=== PATIENT | male | born 1965 | race Caucasian/White ===

== ENCOUNTER 2023-09-29 10:28 | Day surgery (SDC) | payer OTHER ==
[2023-09-25 11:47] LABS: Potassium 4.7 mEq/L (3.5-5.1)
--- NOTE | 2023-09-25 13:32 | EKG ---
Test Date: 2023-09-25 Test Time: 12:14:44 Account Manager: JAROCHO MEASUREMENT RESULTS: Intervals: Rate: 52 UT: 138 QRSD: 90 QT: 400 QTc: 372 [place]: P: 57 UT: 138 QRS: 87 T: 25 INTERPRETIVE STATEMENTS: Sinus bradycardia Otherwise normal ECG No previous ECG available for comparison Electronically Signed On 09-25-23 13:24:14 [employer] by Oracio Diop
[2023-09-29] MEDS ORDERED: NA CHLORIDE 0.9% 1,000 ML ONE (10:41)
[2023-09-29] MEDS ORDERED: CEFAZOLIN SODIUM 2 GM/VIAL ONE (10:42)
[2023-09-29 11:19] VITALS: O2SAT 100
[2023-09-29] MEDS ORDERED: MIDAZOLAM HCL 2 MG/2 ML INJ ONE (11:23)
[2023-09-29] MEDS ORDERED: LIDOCAINE 1% MPF 5 ML VIAL ONE (11:23)
[2023-09-29] MEDS ORDERED: propofoL 200 MG/20 ML VIAL IV ONE (11:23)
[2023-09-29] MEDS ORDERED: FENTANYL CITR 100 MCG/2 ML ONE (11:23)
[2023-09-29] MEDS ORDERED: dexAMETHasone 10 MG/ML VIAL ONE (11:23)
[2023-09-29] MEDS ORDERED: KETOROLAC 30 MG/ML INJ ONE (11:23)
[2023-09-29] MEDS ORDERED: ONDANSETRON 4 MG/2 ML VIAL ONE (11:23)
[2023-09-29] MEDS ORDERED: BUPIVACAINE 0.25% PF 30 ML VIAL ONE (11:35)
[2023-09-29] MEDS ORDERED: GLYCOPYRROLATE 0.2 MG/ML SYR ONE (12:34)
--- NOTE | 2023-09-29 13:30 | P.OP ---
Preoperative diagnosis: RIGHT Inguinal Hernia Postoperative diagnosis: RIGHT Inguinal Hernia Primary procedure: Open RIGHT Inguinal Hernia Repair with mesh Anesthesia: GETA + Local Estimated blood loss: <2cc Specimen: None Findings: Indirect large inguinal hernia Complications: None Implants: Bard Perfix Large Plug and Patch Mesh Transferred to: Recovery Room Condition: Good
[2023-09-29 14:42] VITALS: BP 134/82; TEMP 96.6
[2023-09-29] MEDS ORDERED: Ringers Lactate 1,000 ML IV ONE (16:12)
--- NOTE | 2023-09-29 21:36 | OP ---
Date of Procedure: 09/29/2023 Surgeon: Jorge Trejo MD, Preoperative Diagnosis: Right inguinal hernia. Postoperative Diagnosis: Right inguinal hernia. Procedure Performed: Open right inguinal hernia repair with mesh. Anesthesia: General endotracheal plus local with 0.25% Marc[place]. Estimated Blood Loss: 2 cc. Specimen: None. Findings: Large indirect inguinal hernia. Complications: None. Implants: Bard PerFix plug and patch hernia repair mesh system. Disposition: The patient transferred to recovery room in good condition. Procedure In Detail: After informed was obtained, the patient brought to the operating room, prepped and draped in the usual sterile fashion. After adequate anesthesia achieved, anesthetized an area o angus the right inguinal region down to subcutaneous tissues. I then made a linear incision in the ing uinal region down to subcutaneous tissues using 15 blade. I dissected down through Camper's fat and Samantha fascia to expose the external oblique aponeurosis. This was opened sharply using 15 blade. I then opened it proximally and distally into the deep inguinal ring using Metzenbaum scissors protect ing ilioinguinal nerve throughout. I then encircled the spermatic cord and structures with a [place] drain and dissected down to discover an indirect inguinal hernia with laxity of the floor of the ing uinal canal. This was dissected free from all surrounding structures and returned back to the normal anatomic position in the preperitoneal space. I deployed a large Bard PerFix plug after imbricating the hernia sac, which was maintained and not removed in the procedure. The large Bard PerFix plug w as deployed at this point. I then secured it circumferentially around the edges using 2-0 PDS suture with good approximation of tissues. I then brought the hernia patch and secured it to the pubic tub ercle medially and the internal oblique aponeurosis and the undersurface of the inguinal ligament usi ng 2-0 PDS sutures in interrupted fashion. I then irrigated the areas and removed the [place] drain at this point. The hernia defect was closed quite well at this point. The patient was Valsalva'd wi thout any evidence of bulging or defects. I then closed the external oblique aponeurosis using 3-0 V icryl suture in running fashion. The area was copiously irrigated once again and the deep dermal jose ne was closed once again with 3-0 Vicryl suture in interrupted fashion and skin was closed with 4-0 M onocryl in running fashion. Dermabond was placed over the top. The patient tolerated the procedure without incident or complication and transferred to PACU in good condition. All counts were correct at the end of the case. SHAKA/THAO Voice ID: [id number] Report ID: [id number]
== END 2023-09-29 16:20 | disposition home or self-care (01) ==
LOC: OR 10:28
PROVIDERS: ATTEND Surgery
PROC: 0YU50JZ Supplement Right Inguinal Region with Synthetic Substitute, Open Approach (ICD-10-PCS; principal; 2023-09-29 12:45)
DX: K40.90 Unilateral inguinal hernia, without obstruction or gangrene, not specified as recurrent (principal); E11.9 Type 2 diabetes mellitus without complications
CPT/HCPCS: 93005; 80048; 36415; 82947; 49505; J2704; J2001; J2250; J3010; J1100; J2405; J7120; J7030